=== PATIENT | female | born 1995 | race Caucasian/White ===

== ENCOUNTER 2020-03-21 16:08 | Emergency (ER) | payer OTHER ==
[~2020-03-21] VITALS: Ht 149.9 cm; Wt 51.0 kg
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
[2020-03-21] MEDS ORDERED: METHOCARBAMOL 750 MG TABLET PO ONE (16:30)
[2020-03-21] MEDS ORDERED: METHOCARBAMOL 750 MG TABLET ONE (16:42)
--- NOTE | 2020-03-21 16:44 | NUR ---
PT MEDICATED PER EMAR. PT TOLERATED WELL.
[2020-03-21 17:58] VITALS: BP 120/73
--- NOTE | 2020-03-21 17:58 | NUR ---
PT RESTING IN [facility]. PT'S AOX4. RESPS EVEN AND UNLABORED. BP/SPO2 MONITORS IN PLACE. CALL LIGHT WITHIN REACH.
--- NOTE | 2020-03-21 18:49 | NUR ---
REPORT GIVEN TO MARY LACEY.
== END 2020-03-21 18:54 | disposition home or self-care (01) ==
LOC: ED 18:32
DX: S16.1XXA Strain of muscle, fascia and tendon at neck level, initial encounter (principal); S29.012A Strain of muscle and tendon of back wall of thorax, initial encounter; R55 Syncope and collapse; V49.40XA Driver injured in collision with unspecified motor vehicles in traffic accident, initial encounter; Y93.89 Activity, other specified; Y92.488 Other paved roadways as the place of occurrence of the external cause; Y99.8 Other external cause status
CPT/HCPCS: 72072; 72125; 99284